=== PATIENT | male | born 1950 | race Two or more races ===

== ENCOUNTER 2022-06-28 19:09 | Inpatient (IN) | payer MEDICARE, OTHER ==
[~2022-06-28] VITALS: Ht 182.9 cm; Wt 49.0 kg
--- NOTE | 2022-06-28 20:12 | NUR ---
BEATRIZ 881 FROM [facility] FOR PULLED OUT GT WITH CLOSED OSTOMY. PATIENT ALERT AND ORIENTED X3. AMBULATORY WITH OSTOMY BAG AND WALLER IN PLACE. PATIENT IN BED 11 ON MONITOR AND POX, AWAITING MD ALDANA.
[2022-06-28] MEDS ORDERED: IV NS 0.9% 500 ML BAG IV ONE (20:30)
[2022-06-28 20:38] LABS: BASOPHILS % (AUTO) 0.5 % (0.0-2.0); EOSINOPHILS % (AUTO) 2.5 % (0.0-6.0); HEMATOCRIT 31 % (39-51); HEMOGLOBIN 10.1 g/dL (13.5-17.5); LYMPHOCYTES # (AUTO) 0.8 K/uL (0.8-4.8); LYMPHOCYTES % (AUTO) 8.1 % (20.0-44.0); MEAN CORPUSCULAR HGB CONC 33 g/dl (31.0-36.0); MEAN CORPUSCULAR VOLUME 92 fL (80-96); MONOCYTES # (AUTO) 0.8 K/uL (0.1-1.30); MONOCYTES % (AUTO) 7.9 % (2.0-12.0); NEUTROPHILS # (AUTO) 7.8 K/uL (1.8-8.9); PLATELET COUNT (AUTO) 357 K/uL (150-450); RED BLOOD CELL COUNT(AUTO) 3.35 MIL/uL (4.5-6.0); WHITE BLOOD COUNT (AUTO) 9.7 K/uL (4.3-11.0)
--- NOTE | 2022-06-28 20:44 | NUR ---
BLOOD COLLECTED AND SENT TO LAB
--- NOTE | 2022-06-28 20:44 | NUR ---
COVID SWAB DONE AND SENT TO LAB
[2022-06-28 21:00] LABS: CALCIUM, SERUM 8.3 mg/dL (8.5-10.1); CREATININE 0.9 mg/dL (0.6-1.3); POTASSIUM 3.9 mmol/L (3.5-5.1)
[2022-06-28] MEDS ORDERED: [UNRECOGNIZED DRUG - CODE] IJ (22:35)
[2022-06-28] MEDS ORDERED: BUPR2TAB3 SL (22:37)
[2022-06-28] MEDS ORDERED: [UNRECOGNIZED DRUG - CODE] IJ (22:39)
[2022-06-28] MEDS ORDERED: MISCELLANEOUS MED 1 EA EA XX ONE (23:00)
[2022-06-28] MEDS ORDERED: MAGNESIUM HYDROXIDE 30 ML UDC PO PRN (23:00)
[2022-06-28] MEDS ORDERED: ACETAMINOPHEN 325 MG TABLET PO PRN (23:00)
[2022-06-28] MEDS ORDERED: Z GUARD REMEDY 4 OZ OINT TP PRN (23:00)
[2022-06-28] MEDS ORDERED: ZOLPIDEM TARTRATE 5 MG TABLET PO PRN (23:00)
[2022-06-28] MEDS ORDERED: ONDANSETRON HCL/PF 4 MG/2 ML VIAL IVP PRN (23:00)
[2022-06-28] MEDS ORDERED: MAG HYDROX/AL HYDROX/SIMETH 30 ML UDC PO PRN (23:00)
[2022-06-29 05:28] LABS: BASOPHILS % (AUTO) 0.2 % (0.0-2.0); HEMATOCRIT 30 % (39-51); LYMPHOCYTES # (AUTO) 0.8 K/uL (0.8-4.8); LYMPHOCYTES % (AUTO) 10.7 % (20.0-44.0); MEAN CORPUSCULAR HGB CONC 33 g/dl (31.0-36.0); MEAN CORPUSCULAR VOLUME 92 fL (80-96); MONOCYTES # (AUTO) 0.7 K/uL (0.1-1.30); MONOCYTES % (AUTO) 8.8 % (2.0-12.0); NEUTROPHILS % (AUTO) 77.3 % (43.0-81.0); PLATELET COUNT (AUTO) 372 K/uL (150-450); RED BLOOD CELL COUNT(AUTO) 3.29 MIL/uL (4.5-6.0); WHITE BLOOD COUNT (AUTO) 7.8 K/uL (4.3-11.0)
[2022-06-29 05:49] LABS: CALCIUM, SERUM 8.2 mg/dL (8.5-10.1); CREATININE 0.8 mg/dL (0.6-1.3); MAGNESIUM 1.8 mg/dL (1.8-2.4); POTASSIUM 3.9 mmol/L (3.5-5.1)
[2022-06-29 06:03] LABS: PHOSPHORUS 4.5 mg/dL (2.5-4.9)
--- NOTE | 2022-06-29 07:42 | NUR ---
REPORT GIVEN TO LAURA COLVIN. PT AWAITING TRANSFER TO FLOOR.
--- NOTE | 2022-06-29 08:00 | NUR ---
JAVA SECURITY ENGINEER NOTES RECEIVED PATIENT VIA GURNEY FROM ER ACCOMPANIED BY ED STAFF. BREATHING ON ROOM AIR, EVEN AND UNLABORED. NO SIGNS OF RESPIRATORY DISTRESS. PICC LINE AT LEFT UPPER ARM FLUSHING WELL. ORIENTED TO ROOM SET-UP. BELONGINGS ITEMIZED AND DOCUMENTED. SKIN ASSESSMENT DONE AND PHOTOGRAPHED. SAFETY PRECAUTIONS INITIATED, SIDE RAILS UP X2, BED LOWERED AND LOCKED. CALL LIGHT WITHIN REACH. WILL CONTINUE TO MONITOR
[2022-06-29 08:30] VITALS: BP 109/57
[2022-06-29] MEDS: PANTOPRAZOLE 40 MG VIAL IV SCH (09:31)
--- NOTE | 2022-06-29 11:20 | NUR ---
TRAFFIC RATE ANALYST/MED RECON UNABLE TO UPDATE HOME MEDICATION INFORMATION AT THIS TIME. SON WILL PROVIDE INFO LATER. PER PATIENT AND SON-BAKARI REQUESTED, TPN INFO OBTAINED FROM [facility] [phone]. INFORMATION SENT TO THE PHARMACY. PRIMARY RN AWARE.
[2022-06-29] MEDS ORDERED: Magnesium 1GM/D5W 100ML PREMIX 100 ML IV SCH (13:00)
[2022-06-29] MEDS ORDERED: [UNRECOGNIZED DRUG - OTHER] IV SCH ×3 (13:00)
[2022-06-29] MEDS ORDERED: SODIUM PHOSPHATE IV SCH (13:00)
[2022-06-29] MEDS ORDERED: NS 0.9% IV SCH (13:00)
[2022-06-29] MEDS: HYDROMORPHONE HCL 2 MG TABLET PO PRN (14:00)
[2022-06-29] MEDS: POTASSIUM CL. PREMIX PERIPHER. 50 ML IV SCH ×2 (14:10→14:11)
[2022-06-29] MEDS ORDERED: NEUTRA PHOS 1 POWD.PACKET PO SCH (15:00)
[2022-06-29] MEDS ORDERED: POTASSIUM CHLORIDE 20 MEQ POWDER PACKET PO SCH (15:00)
[2022-06-29 16:00] VITALS: BP 116/66
[2022-06-29] MEDS ORDERED: PANT40TA2 PO (17:45)
[2022-06-29] MEDS ORDERED: GABA-532 PO (17:45)
[2022-06-29] MEDS ORDERED: LACT1CAP71 PO (17:45)
[2022-06-29] MEDS ORDERED: MULT-24 PO (17:45)
[2022-06-29] MEDS ORDERED: ONDA4TAB5 PO (17:45)
[2022-06-29] MEDS ORDERED: HYDR2TAB7 PO (17:45)
[2022-06-29] MEDS ORDERED: FOLI0.4T6 PO (17:45)
[2022-06-29] MEDS ORDERED: TAMS-12 PO (17:45)
[2022-06-29] MEDS ORDERED: DULO30CA2 PO (17:45)
--- NOTE | 2022-06-29 18:14 | NUR ---
RN CLOSING NOTE PATIENT A/O X 4. BREATHING ON ROOM AIR, EVEN AND UNLABORED. NO SIGNS OF RESPIRATORY DISTRESS. PICC LINE AT LEFT UPPER ARM FLUSHING WELL, WITH ONGOING TPN AT 80ML/HR. ALL DUE MEDS GIVEN. SON VISITED THE PATIENT AROUND 1600h. PHARMACY CALLED TO BRING HOME MEDICATIONS AT THE UNIT, PATIENT MADE AWARE TO INFORM FAMILY TO BRING HOME MEDS. SAFETY PRECAUTIONS INITIATED, SIDE RAILS UP X2, BED LOWERED AND LOCKED. CALL LIGHT WITHIN REACH. ENDORSED TO INCOMING NOD.
--- NOTE | 2022-06-29 19:45 | NUR ---
RN OPENING NOTE; RECEIVED PATIENT IN BED AA/O X 4.SUGEY WELL ON ROOM AIR,NO SIGN SOB/DISTRESS NOTED, EVEN AND UNLABORED. PICC LINE AT LEFT UPPER ARM FLUSHING WELL, WITH ONGOING TPN AT 80ML/HR.FC INPLACE DRAINING WOLF URINE WITH NO ODOR,SAFETY PRECAUTIONS INITIATED, SIDE RAILS UP X2, BED LOWERED AND LOCKED. CALL LIGHT WITHIN REACH.WILL CONTINUE TO MONITOR.
[2022-06-29 20:00] VITALS: BP 115/63
[2022-06-30] MEDS: HYDROMORPHONE HCL 2 MG TABLET PO PRN ×3 (00:34→14:16)
--- NOTE | 2022-06-30 00:39 | NUR ---
RN NOTE; PT COMPLAINED OF ABDOMINAL PAIN 03/17,PRN DILAUDED 4MG WAS GIVEN,NO A/R NOTED.
[2022-06-30] MEDS ORDERED: [UNRECOGNIZED DRUG - OTHER] IV SCH (01:00)
[2022-06-30 06:20] LABS: CALCIUM, SERUM 8.3 mg/dL (8.5-10.1); CREATININE 0.8 mg/dL (0.6-1.3); MAGNESIUM 2.3 mg/dL (1.8-2.4); PHOSPHORUS 4.3 mg/dL (2.5-4.9); POTASSIUM 4.1 mmol/L (3.5-5.1)
--- NOTE | 2022-06-30 07:13 | NUR ---
MS RN OPENING NOTES: RECEIVED PATIENT IN BED AWAKE, A/O X 4. ON RA, TOLERATING WELL, NO S/S OF SOB/DISTRESS NOTED, BREATHING EVEN AND UNLABORED. PICC LINE AT LEFT UPPER ARM FLUSHING WELL, WITH ONGOING TPN AT 80ML/HR. FC NOTED, DRAINING WOLF URINE. PT C/O OF PAIN 03/17, WILL MEDICATE PER MD ORDER. SAFETY PRECAUTIONS INITIATED, SIDE RAILS UP X2, BED LOWERED AND LOCKED. CALL LIGHT WITHIN REACH, WILL CONTINUE WITH PLAN OF CARE DURING SHIFT.
[2022-06-30 08:00] VITALS: BP 125/72
[2022-06-30] MEDS: PANTOPRAZOLE 40 MG VIAL IV SCH (08:18)
[2022-06-30] MEDS ORDERED: DEXTROSE 50%-WATER 50 ML DISP.SYRIN IV PRN (08:30)
--- NOTE | 2022-06-30 10:45 | NUR ---
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 DR KANG CALLED FOR SURGICAL CONSULT. DISCUSSED SKIN PROTECTION WITH NURSING STAFF. IN AGREEMENT WITH PLAN OF CARE. Addendum: 06/30/22 at 1046 by ANG BAUMANN WNDNU Amended: Links added.
[2022-06-30] MEDS: THERAHONEY GEL 1.5 OZ TUBE TP SCH ×2 (11:00→20:30)
[2022-06-30] MEDS: BLOOD SUGAR DIAGNOSTIC 1 EACH STRIP IN SCH ×2 (12:23→17:29)
[2022-06-30] MEDS: INSULIN REGULAR, HUMAN 100 UNIT/ML 3 ML VIAL SQ PRN (12:26)
--- NOTE | 2022-06-30 12:27 | NUR ---
MS RN NOTES; 1200- HELD INSULIN, PT IS NPO, BS= [phone]
[2022-06-30] MEDS ORDERED: PANTOPRAZOLE 40 MG TABLET.DR PO SCH (12:30)
[2022-06-30] MEDS ORDERED: BUPRENORPHINE HCL 2 MG TAB.SUBL SL SCH (12:30)
[2022-06-30] MEDS ORDERED: HYDROMORPHONE HCL 2 MG TABLET PO SCH (12:30)
[2022-06-30] MEDS: GABAPENTIN 100 MG CAPSULE PO SCH ×2 (12:47→16:30)
[2022-06-30] MEDS: TAMSULOSIN 0.4 MG CAP.SR.24H PO SCH (13:00)
[2022-06-30] MEDS: DULOXETINE HCL 30 MG CAPSULE.DR PO SCH (13:00)
[2022-06-30] MEDS: MULTIVITAMINS,THERAGRAN 1 UDTAB TABLET PO SCH (13:00)
[2022-06-30] MEDS: FOLIC ACID 1 MG TABLET PO SCH (13:00)
[2022-06-30] MEDS ORDERED: TPN BAG #3 IV SCH ×6 (14:00→14:52)
[2022-06-30] MEDS: FAT EMULSION 20% 500 ML in PREMIX 1 EA IV SCH (15:14)
[2022-06-30 16:00] VITALS: BP 141/49
--- NOTE | 2022-06-30 16:00 | NUR ---
MS RN NOTES: PER PHARMACY, RN ASKED PT TO ASK FAMILY FOR HOME MEDS NOT OF FORMULARY, PT VERBALIZED UNDERSTANDING.
[2022-06-30] MEDS: LACTOBACILLUS RHAMNOSUS GG 1 EACH CAP.SPRINK PO SCH (16:30)
--- NOTE | 2022-06-30 18:42 | NUR ---
MS RN CLOSING NOTES: PATIENT IN BED AWAKE, A/O X 4. ON RA, TOLERATING WELL, NO S/S OF SOB/DISTRESS NOTED, BREATHING EVEN AND UNLABORED. PICC LINE AT LEFT UPPER ARM FLUSHING WELL, WITH ONGOING TPN AT 50ML/HR AND LIPIDS 20ML/HR. FC NOTED, DRAINED DARK YELLOW URINE, 1200CC DURING SHIFT. COLOSTOMY BAG NOTED L UPPER QUADRANT, DRAINED 200CC SOFT DRAINAGE DURING SHIFT. KEPT CLEAN, DRY AND COMFORTABLE, NEEDS MET, DENIES PAIN AT THIS TIME. SAFETY PRECAUTIONS INITIATED, SIDE RAILS UP X2, BED LOWERED AND LOCKED. CALL LIGHT WITHIN REACH, WILL ENDORSE TO PM SHIFT.
--- NOTE | 2022-06-30 19:45 | NUR ---
MS RN NOTES RECEIVED RESTING COMFORTABLY ON BED.BREATHING EASY,NO SOB.WITH VALE PICC LINE,INFUSING TPN AT 50ML/HR RATE,LIPID AT 20ML/HR RATE,SITE PATENT.DVT PUMP IN USED FOR DVT PROPHYLAXIS.NPO STATUS,GOING FOR PEG PLACEMENT TOMORROW.CONSENT ON CHART.DENIES DISCOMFORTS AT THE MOMENT.CALL LIGHT IN REACH.WILL CONTINUE TO MONITOR STATUS.
[2022-06-30 20:00] VITALS: BP 106/60
--- NOTE | 2022-07-01 | NUR ---
MS RN NOTES ACCU-CHECK BLOOD SUGAR CHECK 106,NO INSULIN COVERAGE PER SLIDING SCALE.
[2022-07-01] MEDS: BLOOD SUGAR DIAGNOSTIC 1 EACH STRIP IN SCH ×4 (00:30→18:07)
--- NOTE | 2022-07-01 05:00 | NUR ---
MS RN NOTES SLEEPING,NOT IN ANY FORM OF DISTRESS.REPORT GIVEN TO KRUNAL COLVIN FOR CHARLIE.
--- NOTE | 2022-07-01 05:03 | NUR ---
RN NOTE TRANSFER OF CARE FROM MARII NEUMANN.
--- NOTE | 2022-07-01 07:23 | NUR ---
MS RN CLOSING NOTE PATIENT IN BED; AWAKE, A/O X 3-4. BREATHING EASY, NO SOB. WITH VALE PICC LINE INFUSING WITH TPN AT 50ML/HR RATE, LIPID AT 20ML/HR; SITE IS PATENT. DVT PUMP ON FOR DVT PROPHYLAXIS. ON NPO STATUS GOING FOR PEG PLACEMENT TOMORROW. WITH CONSENT PLACED ON CHART. DENIES ANY PAIN OR DISCOMFORT AT THIS TIME. SAFETY MEASURES IMPLEMENTED: CALL LIGHT AND TABLE WITHIN REACH, SIDE RAILS UP X 2, BED IN LOWEST LOCKED POSITION. ENDORSED TO MORNING SHIFT FOR CHARLIE.
--- NOTE | 2022-07-01 07:30 | NUR ---
MS RN RECEIVED ON BED, AWAKE,ALERT,ORIENTED X4,NOT IN ANY FORM OF DISTRESS, RESPIRATIONS EVEN AND UNLABORED,NO SOB NOTED, CAME FOR GT PLACEMENT, COLOSTOMY INTACT,WENT DOWN FOR PEG PLACEMENT,ALL NEEDS ATTENDED.
[2022-07-01] MEDS ORDERED: CLINDAMYCIN IV RTU IN D5W 50 ML ONE (07:51)
[2022-07-01 08:00] VITALS: BP 113/73
[2022-07-01 08:08] LABS: CALCIUM, SERUM 8.3 mg/dL (8.5-10.1); CREATININE 0.9 mg/dL (0.6-1.3); MAGNESIUM 1.8 mg/dL (1.8-2.4); PHOSPHORUS 4.2 mg/dL (2.5-4.9); POTASSIUM 3.5 mmol/L (3.5-5.1)
[2022-07-01] MEDS: LACTOBACILLUS RHAMNOSUS GG 1 EACH CAP.SPRINK PO SCH ×2 (09:00→18:07)
[2022-07-01] MEDS: THERAHONEY GEL 1.5 OZ TUBE TP SCH ×2 (09:00)
[2022-07-01] MEDS: FOLIC ACID 1 MG TABLET PO SCH (09:00)
[2022-07-01] MEDS: MULTIVITAMINS,THERAGRAN 1 UDTAB TABLET PO SCH (09:00)
[2022-07-01] MEDS: TAMSULOSIN 0.4 MG CAP.SR.24H PO SCH (09:00)
[2022-07-01] MEDS: DULOXETINE HCL 30 MG CAPSULE.DR PO SCH (09:00)
[2022-07-01] MEDS: PANTOPRAZOLE 40 MG/PACK PACK PO SCH (09:00)
[2022-07-01] MEDS: GABAPENTIN 100 MG CAPSULE PO SCH ×3 (09:00→18:07)
--- NOTE | 2022-07-01 09:30 | NUR ---
ms mcdonald breakfast served,due meds given, tolerated well. Addendum: 07/01/22 at 1525 by EBONY HAYES RN wrong entry
[2022-07-01] MEDS ORDERED: [UNRECOGNIZED DRUG - OTHER] IV SCH (10:00)
--- NOTE | 2022-07-01 10:00 | NUR ---
ms mcdonald was seen by dr. theresa dinh/ order to go home today. Addendum: 07/01/22 at 1523 by EBONY HAYES RN disregard notes,wrong pt entry
[2022-07-01 10:53] LABS: BASOPHILS % (AUTO) 0.4 % (0.0-2.0); EOSINOPHILS % (AUTO) 2.5 % (0.0-6.0); HEMATOCRIT 36 % (39-51); HEMOGLOBIN 11.4 g/dL (13.5-17.5); LYMPHOCYTES # (AUTO) 0.9 K/uL (0.8-4.8); LYMPHOCYTES % (AUTO) 8.1 % (20.0-44.0); MEAN CORPUSCULAR HGB CONC 32 g/dl (31.0-36.0); MEAN CORPUSCULAR VOLUME 95 fL (80-96); MONOCYTES # (AUTO) 0.8 K/uL (0.1-1.30); MONOCYTES % (AUTO) 7.9 % (2.0-12.0); NEUTROPHILS # (AUTO) 8.7 K/uL (1.8-8.9); NEUTROPHILS % (AUTO) 81.1 % (43.0-81.0); PLATELET COUNT (AUTO) 380 K/uL (150-450); RED BLOOD CELL COUNT(AUTO) 3.78 MIL/uL (4.5-6.0); WHITE BLOOD COUNT (AUTO) 10.7 K/uL (4.3-11.0)
--- NOTE | 2022-07-01 11:00 | NUR ---
ms rn patient came back from recovery, awake,alert,oriented x4,not in any form of distress, surgical site intact w/ no active bleeding at this time, patient denies pain.
[2022-07-01 11:11] LABS: PREALBUMIN 17.7 MG/DL (18.0-35.7)
[2022-07-01 11:40] LABS: ALBUMIN 2.3 g/dL (3.4-5.0)
--- NOTE | 2022-07-01 14:00 | NUR ---
ms furnace clerk instructions given and understood, patient went home w/ prescription,all needs attended. Addendum: 07/01/22 at 1620 by EBONY HAYES RN wrong pt entry, disregard notes.
--- NOTE | 2022-07-01 15:00 | NUR ---
ms rn patient's sons came to visit him, but patient is still sleeping, home meds greceived from sons, sent to pharmacy.
[2022-07-01] MEDS: HYDROMORPHONE HCL 2 MG TABLET PO PRN ×2 (15:52→21:32)
[2022-07-01 16:00] VITALS: BP 120/58
[2022-07-01] MEDS: BUPRENORPHINE HCL 2 MG SL SCH (18:07)
[2022-07-01] MEDS ORDERED: KEY,NONCONTROL,TO KEEP IN PYXI 1 EA MC ONE (18:31)
--- NOTE | 2022-07-01 18:45 | NUR ---
ms rn on bed, no distress noted, medicated for pain,all needs attended.
--- NOTE | 2022-07-01 19:30 | NUR ---
MS RN NOTES RECEIVED ON BED,ON HIGH FOWLERS POSITION,BREATHING REGULAR,NOT IN ANY FORM DISTRESS.S/P PEG PLACEMENT FOR DECOMPRESSION.COLOSTOMY BAG IN PLACE,NO OUTPUT ATE MOMENT.GT CLAMPED.WALLER CATH IN PLACE DRAINS YELLOWISH OUTPUT.ON TPN #4,INFUSING AT 50ML/HR RATE ON LEFT UPPER ARM PICC LINE.DVT PUMP IN USED FOR DVT PROPHYLAXIS.CALL LIGHT IN REACH.WILL CONTINUE TO MONITOR STATUS.
[2022-07-01 20:00] VITALS: BP 108/59
[2022-07-01 20:15] VITALS: BP 108/59
[2022-07-01] MEDS: IV D5/ 0.9% NACL 1,000 ML IV PRN (20:47)
--- NOTE | 2022-07-01 21:32 | NUR ---
MS RN NOTES C/O SEVERE PAIN 9/10 ON PAIN SCALE.MEDICATED WITH DILAUDID 4MG PO WITH SIPS OF WATER,WITH ORDER.
--- NOTE | 2022-07-01 23:29 | NUR ---
MS RN NOTES ACCU-CHECK BLOOD SUGAR CHECKED 111MG/DL,NO INSULIN COVERAGE.
[2022-07-02] MEDS: BLOOD SUGAR DIAGNOSTIC 1 EACH STRIP IN SCH ×4 (00:13→17:26)
[2022-07-02] MEDS ORDERED: KEY,NONCONTROL,TO KEEP IN PYXI 1 EA MC ONE ×4 (00:17→17:56)
[2022-07-02] MEDS: BUPRENORPHINE HCL 2 MG SL SCH ×4 (00:25→18:00)
--- NOTE | 2022-07-02 05:00 | NUR ---
MS RN NOTES ACCU-CHECK BLOOD SUGAR CHECK 118,NO INSULIN COVERAGE.TPN #5 HUNG,INFUSING AT 50ML/HR RATE VIA IV PUMP ON LEFT UPPER ARM PICC LINE.IN NO ACUTE DISTRESS.
[2022-07-02] MEDS ORDERED: TPN BAG #5 IV SCH (06:00)
[2022-07-02 06:45] LABS: ALBUMIN 2.4 g/dL (3.4-5.0); BILIRUBIN,TOTAL 0.4 mg/dL (0.2-1.0); CALCIUM, SERUM 8.8 mg/dL (8.5-10.1); CREATININE 0.8 mg/dL (0.6-1.3); MAGNESIUM 1.9 mg/dL (1.8-2.4); PHOSPHORUS 3.8 mg/dL (2.5-4.9); POTASSIUM 3.5 mmol/L (3.5-5.1); TOTAL PROTEIN, SERUM 6.6 g/dL (6.4-8.2)
[2022-07-02 07:00] VITALS: BP 115/60
--- NOTE | 2022-07-02 07:00 | NUR ---
MS RN OPENING NOTES: RECEIVED PATIENT IN BED AWAKE, ALERT AND ORIENTED X3-4 . NO SOB OR CARDIAC DISTRESS NOTED ON 02 INHALATION @2LPM VIA NC AND TOLERATING WELL. DENIES ANY PAIN AT THIS TIME. NOTED WITH IV ACCESS ON VIC PICC LINE GAUGE 18 PATENT,INTACT AND INFUSING IV FLUIDS WELL D5NS 1L @30ML/HR TPN BOTTLE #5 @50ML/HR. NOTED WITH COLOSTOMY BAG. FC DRAINING CLEAR YELLOW COLORED URINE VIA GRAVITY,PATENT AND INTACT. SAFETY MEASURES MAINTAINED: BED LOCKED AND IN LOWEST POSITION, SIDE RAILS UP X 2 AND CALL LIGHT IN EASY REACH. WILL MONITOR ACCORDINGLY.
[2022-07-02] MEDS: DULOXETINE HCL 30 MG CAPSULE.DR PO SCH (09:00)
[2022-07-02] MEDS: LACTOBACILLUS RHAMNOSUS GG 1 EACH CAP.SPRINK PO SCH ×2 (09:00→16:34)
[2022-07-02] MEDS: GABAPENTIN 100 MG CAPSULE PO SCH ×3 (09:00→16:34)
[2022-07-02] MEDS: TAMSULOSIN 0.4 MG CAP.SR.24H PO SCH (09:00)
[2022-07-02] MEDS: FOLIC ACID 1 MG TABLET PO SCH (09:00)
[2022-07-02] MEDS: PANTOPRAZOLE 40 MG/PACK PACK PO SCH (09:00)
[2022-07-02] MEDS: MULTIVITAMINS,THERAGRAN 1 UDTAB TABLET PO SCH (09:00)
[2022-07-02 09:28] LABS: BASOPHILS # (AUTO) 0.1 K/uL (0.0-0.2); BASOPHILS % (AUTO) 1.3 % (0.0-2.0); EOSINOPHILS % (AUTO) 2.4 % (0.0-6.0); HEMATOCRIT 34 % (39-51); HEMOGLOBIN 11.1 g/dL (13.5-17.5); LYMPHOCYTES # (AUTO) 0.8 K/uL (0.8-4.8); MEAN CORPUSCULAR HGB CONC 32 g/dl (31.0-36.0); MEAN CORPUSCULAR VOLUME 92 fL (80-96); MONOCYTES # (AUTO) 0.8 K/uL (0.1-1.30); MONOCYTES % (AUTO) 11.7 % (2.0-12.0); NEUTROPHILS # (AUTO) 5.2 K/uL (1.8-8.9); NEUTROPHILS % (AUTO) 73.6 % (43.0-81.0); PLATELET COUNT (AUTO) 422 K/uL (150-450); RED BLOOD CELL COUNT(AUTO) 3.74 MIL/uL (4.5-6.0); WHITE BLOOD COUNT (AUTO) 7.1 K/uL (4.3-11.0)
[2022-07-02 09:31] LABS: ALBUMIN 2.4 g/dL (3.4-5.0)
[2022-07-02] MEDS: THERAHONEY GEL 1.5 OZ TUBE TP SCH ×2 (09:31)
--- NOTE | 2022-07-02 11:59 | NUR ---
RN NOTES: OPENED TH PIXYS TWICE, FORGOT TO SCAN THE MEDS. GOT ONLY 1 MEDS FOR PATIENT AND WITNESSED BY MARII WISEMAN.
[2022-07-02] MEDS: FAT EMULSION 20% 500 ML in PREMIX 1 EA IV SCH (14:59)
[2022-07-02] MEDS: HYDROMORPHONE HCL 2 MG TABLET PO PRN ×2 (15:08→21:41)
[2022-07-02 16:00] VITALS: BP 110/61
--- NOTE | 2022-07-02 17:30 | NUR ---
RN NOTES: PT OUT OF BUPRENORPHRINE HCL 2MG SL ITS HOME MEDS, CALLED PHARMACY AND INSTRUCTED PT'S FAMILY NEED TO BRING HOME MEDS, PT MADE AWARE AND WILL BRING MEDS TOMORROW MORNING. CHARGE NURSE MADE AWARE.
[2022-07-02] MEDS ORDERED: TPN BAG #6 IV SCH ×3 (19:00)
--- NOTE | 2022-07-02 19:00 | NUR ---
MS RN CLOSING NOTES: PATIENT IN BED,AWAKE. ALERT AND ORIENTED X 4 AND ABLE TO VERBALIZED NEEDS. ON O2 INHALATION @2LPM VIA NC AND TOLERATING WELL (ON AND OFF). NO SOB OR CARDIAC DISTRESS NOTED. IV ACCESS ON VIC PICC LINE PATENT INTACT AND INFUSING IV FLUIDS AT 75ML/HR. TPN #6 @50ML/HR, LIPIDS @20ML/HR. ON PAIN MANAGEMENT ORDERED. G TUBE FOR DECOMPRESSION PURPOSES. COLOSTOMY INTACT.SAFETY MEASURES MAINTAINED: BED LOCKED AND IN LOWEST POSITION. SIDE RAILS UP X 2 CALL LIGHT IN EASY R EACH FOR HELP. WILL MONITOR PT ACCORDINGLY. ENDORSED TO BLASTING GANG MINER RN FOR CONTINUITY OF CARE. .
--- NOTE | 2022-07-02 19:27 | NUR ---
emily rn opening received patient in bed. a/ox4. no s/s of apparent distress on room air. pain tolerable at this time per patient. VIC PICC LINE running TPN @50mls/hr and Lipids @20mls/hr. colostomy in place, stoma red and bag clean, no output for now. Forbes cath draining cloudy brown urine with sediments. call light within reach. safety in place. will cont. with the plan for patient.
[2022-07-02 20:00] VITALS: BP 112/67
[2022-07-03] MEDS: BLOOD SUGAR DIAGNOSTIC 1 EACH STRIP IN SCH ×4 (00:20→17:10)
--- NOTE | 2022-07-03 00:21 | NUR ---
noc rn note- non-admin non-admin home med Buprenorphine hcl. not on patient's cassette and per endorsement, patient family to bring in tomorrow.
[2022-07-03] MEDS: HYDROMORPHONE HCL 2 MG TABLET PO PRN ×3 (04:33→18:40)
[2022-07-03] MEDS: BUPRENORPHINE HCL 2 MG SL SCH ×4 (06:00→18:00)
[2022-07-03] MEDS: INSULIN REGULAR, HUMAN 100 UNIT/ML 3 ML VIAL SQ PRN ×2 (06:26→12:58)
[2022-07-03 06:52] LABS: ALBUMIN 2.3 g/dL (3.4-5.0); BILIRUBIN,TOTAL 0.3 mg/dL (0.2-1.0); CALCIUM, SERUM 8.7 mg/dL (8.5-10.1); CREATININE 0.8 mg/dL (0.6-1.3); MAGNESIUM 1.7 mg/dL (1.8-2.4); PHOSPHORUS 3.7 mg/dL (2.5-4.9); POTASSIUM 3.4 mmol/L (3.5-5.1); TOTAL PROTEIN, SERUM 6.3 g/dL (6.4-8.2)
[2022-07-03 07:00] VITALS: BP 103/62
--- NOTE | 2022-07-03 07:26 | NUR ---
noc rn note all needs attended. all scheduled meds administered. report given to addison for continuity of care.
--- NOTE | 2022-07-03 07:45 | NUR ---
MS RN OPENING NOTES: RECEIVED PATIENT IN BED AWAKE, ALERT AND ORIENTED X3-4. WITH SPO2 99% ON RA, TOLERATING WELL. NO SOB OR CARDIAC DISTRESS NOTED. DENIES ANY PAIN AT THIS TIME. NOTED WITH IV ACCESS ON VIC PICC LINE GAUGE 18 PATENT,INTACT AND INFUSING IV FLUIDS WELL D5NS 1L @30ML/HR TPN BOTTLE @50ML/HR. NOTED WITH COLOSTOMY BAG. FC DRAINING CLEAR YELLOW COLORED URINE VIA GRAVITY,PATENT AND INTACT. SAFETY MEASURES MAINTAINED: BED LOCKED AND IN LOWEST POSITION, SIDE RAILS UP X 2 AND CALL LIGHT IN EASY REACH. WILL MONITOR ACCORDINGLY.
[2022-07-03] MEDS: THERAHONEY GEL 1.5 OZ TUBE TP SCH ×2 (09:00→10:01)
[2022-07-03] MEDS: Magnesium 1GM/D5W 100ML PREMIX 100 ML IV SCH ×2 (09:46→10:45)
[2022-07-03] MEDS: POTASSIUM CL. PREMIX PERIPHER. 50 ML IV SCH ×6 (09:47→16:06)
[2022-07-03] MEDS: FOLIC ACID 1 MG TABLET PO SCH (09:56)
[2022-07-03] MEDS: TAMSULOSIN 0.4 MG CAP.SR.24H PO SCH (09:56)
[2022-07-03] MEDS: DULOXETINE HCL 30 MG CAPSULE.DR PO SCH (09:56)
[2022-07-03] MEDS: PANTOPRAZOLE 40 MG/PACK PACK PO SCH (09:56)
[2022-07-03] MEDS: GABAPENTIN 100 MG CAPSULE PO SCH ×3 (09:56→16:14)
[2022-07-03] MEDS: LACTOBACILLUS RHAMNOSUS GG 1 EACH CAP.SPRINK PO SCH ×2 (09:56→16:14)
[2022-07-03] MEDS: MULTIVITAMINS,THERAGRAN 1 UDTAB TABLET PO SCH (09:56)
--- NOTE | 2022-07-03 12:59 | NUR ---
rn note- non-admin non-admin home med Buprenorphine hcl. not on patient's cassette and per endorsement, patient states his son will bring the medication tomorrow.
[2022-07-03] MEDS ORDERED: TPN BAG #7 IV SCH ×3 (15:00)
[2022-07-03 16:00] VITALS: BP 102/67
[2022-07-03] MEDS: IV D5/ 0.9% NACL 1,000 ML IV PRN (17:53)
--- NOTE | 2022-07-03 18:19 | NUR ---
MS RN CLOSING NOTES: PATIENT IN BED AWAKE, ALERT AND ORIENTED X3-4. WITH SPO2 98% ON RA, TOLERATING WELL. NO SOB OR CARDIAC DISTRESS NOTED. DENIES ANY PAIN AT THIS TIME. NOTED WITH IV ACCESS ON VIC PICC LINE GAUGE 18 PATENT,INTACT AND INFUSING IV FLUIDS WELL D5NS 1L @30ML/HR TPN BOTTLE#7 @50ML/HR. COLOSTOMY BAG CHANGED AND EMPTIED. WOUND CARE DONE FC DRAINING CLEAR YELLOW COLORED URINE VIA GRAVITY,PATENT AND INTACT. SAFETY MEASURES MAINTAINED: BED LOCKED AND IN LOWEST POSITION, SIDE RAILS UP X 2 AND CALL LIGHT IN EASY REACH. ENDORSED TO INCOMING NURSE.
--- NOTE | 2022-07-03 19:28 | NUR ---
noc rn opening received patient in bed. a/ox4. 2 visitors at bedside. no s/s of apparent distress on room air. pain tolerable at this time per patient. VIC PICC LINE running TPN @50mls/hr and Lipids @20mls/hr. colostomy in place, stoma red and bag clean, no output for now. Forbes cath draining cloudy brown urine with sediments. call light within reach. safety in place. will cont. with the plan for patient.
[2022-07-03 20:00] VITALS: BP 114/75
[2022-07-03] MEDS ORDERED: Magnesium 1GM/D5W 100ML PREMIX 100 ML IV SCH (21:00)
[2022-07-03] MEDS ORDERED: POTASSIUM CL. PREMIX PERIPHER. 50 ML IV SCH (21:00)
--- NOTE | 2022-07-03 21:50 | NUR ---
noc rn note messaged Doctor Tyson to clarify Mag 1 g order for 2100 since patient had received 2 bags already in the am. awaiting Doctor's response.
--- NOTE | 2022-07-03 22:57 | NUR ---
noc rn note buckle and button maker Doctor Deb said to cancel Magnesium order. non-admined.
[2022-07-04] MEDS: BLOOD SUGAR DIAGNOSTIC 1 EACH STRIP IN SCH ×3 (00:31→11:35)
[2022-07-04] MEDS: HYDROMORPHONE HCL 2 MG TABLET PO PRN ×2 (00:33→12:09)
--- NOTE | 2022-07-04 00:33 | NUR ---
noc rn note patient c/o 10/10 pain on his incision site. Dilaudid PO given 6 min. early. will reassess.
--- NOTE | 2022-07-04 05:37 | NUR ---
noc rn note patient adamantly refused to be changed even his colostomy bag. per patient "it doesn't need changing yet and regarding the change of linens per patient we changed him last night and doesn't need changing again and that it hurts too much to change. Patient dilaudid PRN not yet due at this time.
[2022-07-04] MEDS: BUPRENORPHINE HCL 2 MG SL SCH ×3 (06:00→12:00)
[2022-07-04] MEDS: INSULIN REGULAR, HUMAN 100 UNIT/ML 3 ML VIAL SQ PRN (06:20)
[2022-07-04 07:00] VITALS: BP 114/66
[2022-07-04 07:21] LABS: CALCIUM, SERUM 8.5 mg/dL (8.5-10.1); CREATININE 0.7 mg/dL (0.6-1.3); PHOSPHORUS 3.6 mg/dL (2.5-4.9); POTASSIUM 3.7 mmol/L (3.5-5.1)
[2022-07-04] MEDS: LACTOBACILLUS RHAMNOSUS GG 1 EACH CAP.SPRINK PO SCH (08:25)
[2022-07-04] MEDS: GABAPENTIN 100 MG CAPSULE PO SCH (08:25)
[2022-07-04] MEDS: PANTOPRAZOLE 40 MG/PACK PACK PO SCH (08:25)
[2022-07-04] MEDS: DULOXETINE HCL 30 MG CAPSULE.DR PO SCH (08:25)
[2022-07-04] MEDS: MULTIVITAMINS,THERAGRAN 1 UDTAB TABLET PO SCH (08:25)
[2022-07-04] MEDS: FOLIC ACID 1 MG TABLET PO SCH (08:26)
[2022-07-04] MEDS: TAMSULOSIN 0.4 MG CAP.SR.24H PO SCH (08:26)
[2022-07-04] MEDS: THERAHONEY GEL 1.5 OZ TUBE TP SCH ×3 (08:32→09:40)
[2022-07-04] MEDS ORDERED: TPN BAG #8 IV SCH ×3 (11:00)
--- NOTE | 2022-07-04 13:29 | NUR ---
DISCHARGED NOTE PATIENT DISCHARGED TO HOME IN STABLE CONDITION. A/OX4 ON RA, TOLERATING WELL. NO SOB NOTED. VITALS TAKEN, RECORDED AND STABLE. WOUND CARE RENDERED, PICTURES TAKEN. DENIES PAIN OR DISCOMFORT AT THIS TIME. ALL BELONGINGS ACCOUNTED TO THE PATIENT INCLUDING HOME MEDICATIONS. DISCHARGED INSTRUCTION RELAYED TO PATIENT, PATIENT VERBALIZED UNDERSTANDING. WITH PICC LINE ON VIC, PEG DRY AND INTACT, WALLER CATHETER DRAINING WELL. PATIENT WILL HAVE HOME CARE HELP VIA HOME NURSE VISIT BACK HOME STATED BY THE PATIENT. DISCHARGED.
[2022-07-05] MEDS ORDERED: TPN BAG #9 IV SCH ×3 (07:00)
== END 2022-07-04 13:30 | disposition home health service (06) | DRG 393 ==
LOC: ER 19:11 → EDBD 19:11 → TRANSITION 06-29 01:05 → MED 06-29 08:07
PROVIDERS: ADMIT Nurse Practitioner Acute Care; ATTEND Nurse Practitioner Acute Care
PROC: 0DH63UZ Insertion of Feeding Device into Stomach, Percutaneous Approach (ICD-10-PCS; principal; 2022-07-01)
DX: K94.23 Gastrostomy malfunction (principal); L89.153 Pressure ulcer of sacral region, stage 3; E87.1 Hypo-osmolality and hyponatremia; I48.0 Paroxysmal atrial fibrillation; Z85.038 Personal history of other malignant neoplasm of large intestine; Z93.3 Colostomy status; D63.8 Anemia in other chronic diseases classified elsewhere; G89.29 Other chronic pain; I10 Essential (primary) hypertension; Z20.822 Contact with and (suspected) exposure to COVID-19; K29.70 Gastritis, unspecified, without bleeding; R13.10 Dysphagia, unspecified; Y84.8 Other medical procedures as the cause of abnormal reaction of the patient, or of later complication, without mention of misadventure at the time of the procedure; Y73.8 Miscellaneous gastroenterology and urology devices associated with adverse incidents, not elsewhere classified; Y92.009 Unspecified place in unspecified non-institutional (private) residence as the place of occurrence of the external cause
CPT/HCPCS: 36415; 43760; 71045-TC; 80048-TC; 80053-TC; 80061-TC; 82040-TC; 82962-TC; 83735-TC; 84100-TC; 84134-TC; 85025-TC; 85730-TC; 87081-TC; A4216; A9563; C9113; C9803; G0378; J1815; J2405; J2704; J3475; J3480; J3490; J7030; J7042; J7050